=== PATIENT | female | born 1970 | race Hispanic/Latino ===

== ENCOUNTER 2016-09-03 15:05 | Emergency (ER) | payer OTHER ==
[~2016-09-03] VITALS: Ht 154.9 cm; Wt 75.8 kg
[~2016-09-03 15:05] MED LIST: KETOROLAC TROME10 M1 PO; PERCOCET 325 MG1 TA2 PO
[2016-09-03 15:16] VITALS: BP 148/83
[2016-09-03] MEDS ORDERED: VALIUM5 M2 PO (16:49)
[2016-09-03] MEDS ORDERED: PERCOCET 5-3251 EACH PO (16:49)
[2016-09-03] MEDS ORDERED: MEDROL4 M2 PO (16:49)
--- NOTE | 2016-09-03 16:50 | ED NECK/BACK PAIN COMPLAINT ---
History of Present Illness General Chief Complaint: Low Back Pain/Injury Stated Complaint: LOW BACK PAIN Source: patient Exam Limitations: no limitations Vital Signs & Intake/Output Vital Signs & Intake/Output Vital Signs Date Time Temp Pulse Resp B/P Pulse O2 O2 Flow FiO2 Ox Delivery Rate 09/03 1621 Room Air 09/03 1516 97.8 56 16 148/83 99 Room Air Allergies Coded Allergies: NO KNOWN ALLERGIES (06/08/14) Reconcile Medications Diazepam (Valium) 5 MG TABLET 1 TAB PO TID SPASMS Ketorolac Tromethamine 10 MG TABLET 1 TAB PO Q6P PRN PAIN Methylprednisolone. (Medrol) 4 MG TAB.DS.PK 1 DP PO AD SCIATICA 6 on day 1 then reduce by one tablet daily until gone Oxycodone HCl/Acetaminophen (Percocet 5-325 MG Tablet) 5 MG-325 MG TABLET 1-2 TAB PO Q6P PRN PAIN OXYCODONE HCL/ACETAMINOPHEN (Percocet 5-325 MG Tablet) 325 MG/5 MG TAB 1-2 TAB PO Q4-6 PRN PRN PAIN Triage Note: PT STATES SHE HAS A BAD PAIN IN HER LEFT LOWER BACK THAT STARTED SINCE THURSDAY. PT STATES SHE IS HAVING TROUBLE MOVING HER LEFT LEG. Triage Nurses Notes Reviewed? yes Onset: Abrupt Duration: day(s): (3), constant, continues in ED Timing: recent history Quality/Severity: moderate, severe Location: lumbar spine Radiation: upper legs, lower legs, feet Loss of Consciousness: no loss of consciousness HPI: 46-year-old female comes into emergency room with complaints of left lower back pain that radiates down her left leg to her foot. Symptoms have been going on for the past 3 days getting progressively worse. Denies any numbness tingling. Denies any weakness. Denies any other associated symptoms. (WILLIAMS VALDES) Past History Travel History Traveled to [place] past 21 day No Medical History Any Pertinent Medical History? see below for history Endocrine: THYROID NODULE Surgical History Surgical History: non-contributory Psychosocial History What is your primary language Amharic Tobacco Use: Never used ETOH Use: denies use Illicit Drug Use: denies illicit drug use Family History Family History, If Any: MOTHER FH: myocardial infarction Hx Contributory? No (WILLIAMS VALDES) Review of Systems Review of Systems Constitutional: Reports: no symptoms. Eyes: Reports: no symptoms. Ears, Nose, Throat, Mouth: Reports: no symptoms. Respiratory: Reports: no symptoms. Cardiovascular: Reports: no symptoms. Gastrointestinal/Abdominal: Reports: no symptoms. Musculoskeletal: Reports: see HPI. Skin: Reports: no symptoms. Neurological/Psychological: Reports: no symptoms. All Other Systems: Reviewed and Negative (WILLIAMS VALDES) Physical Exam Physical Exam General Appearance: well developed/nourished, mild distress Head: atraumatic Eyes: Bilateral: normal appearance. Ears, Nose, Throat, Mouth: moist mucous membrane Neck: normal inspection Respiratory: no respiratory distress Back: normal inspection, TENDERNESS LEFT LOWER BACK, Extremities: normal range of motion Motor: Deficit L4 Right: No Deficit L4 Left: No Deficit L5 Right: No Deficit L5 Left: No Deficit S1 Right: No Deficit S1 Right: No Neurologic/Psych: awake, alert, oriented x 3, normal mood/affect Skin: intact, normal color, warm/dry (WILLIAMS VALDES) Progress Differential Diagnosis: aortic dissection, cauda equina syn, herniated disc, myofascial strain, pyelo/UTI, sciatica, spinal cord inj, thoracic outlet syn, ureterolithiasis Plan of Care: Orders Procedure Date/time Status Durable Medical Equipment 09/03 1637 Active Departure Departure Disposition: HOME OR SELF CARE Condition: Stable Clinical Impression Primary Impression: Lumbar radiculopathy, acute Referrals: RAFAEL RODARTE (PCP/Family) Additional Instructions: Take Valium Percocet and Medrol Dosepak as prescribed. Follow-up with ear primary care doctor for outpatient MRI. Return if any other concerns worsening symptoms. Please go over all results of today's visit with your primary care doctor. Contact your primary care doctor to let them know you were here in the emergency room. There may be nonspecific findings which may not be related to your visit today here in the emergency room but may require further evaluation and chronic monitoring by your primary care doctor. If you had a laceration today the chance of foreign body always remains. You should follow-up with your primary care doctor for recheck in 3-5 days for a wound check. If you had an x-ray done there is a chance that a fracture could have been missed on initial read and you should follow-up with your primary care doctor for repeat x-rays if symptoms persist. If your blood pressure was elevated here in the emergency room please have rechecked by her primary care doctor within the next 48 hours by your primary care doctor. If you were prescribed a narcotic here in the emergency room or any type of controlled substances you're not allowed to drive while taking this medication or operate any type of heavy machinery. Narcotics can make you feel lightheaded dizziness nausea and can cause constipation. You may need to pickling machine operator a stool softener. Thank you for choosing [facility] emergency room. Please return to the emergency room immediately if you have any other concerns worsening of symptoms. Departure Forms: Customer Survey General Discharge Information Prescriptions: Current Visit Scripts Diazepam (Valium) 1 TAB PO TID #20 TAB Oxycodone HCl/Acetaminophen (Percocet 5-325 MG Tablet) 1-2 TAB PO Q6P PRN PAIN #20 TAB Methylprednisolone. (Medrol) 1 DP PO AD #1 DP 6 on day 1 then reduce by one tablet daily until gone Comments 09/03/2016 5:29:18 PM Patient declined lumbar x-ray here. I feel symptoms are most likely consistent with herniated disc versus sciatica. Patient has no motor deficits. Patient told to follow-up with her primary care doctor for outpatient MRI. Patient just wants some stronger pain medication to go home with. Patient clinically looks well and is in no apparent distress. Nontoxic-appearing. (WILLIAMS VALDES) PA/CASH CLERK Co-Sign Statement Statement: ED Attending supervision documentation- [] I saw and evaluated the patient. I have also reviewed all the pertinent lab results and diagnostic results. I agree with the findings and the plan of care as documented in the PA's/CASH CLERK's documentation. [X] I have reviewed the ED Record and agree with the PA's/CASH CLERK's documentation. [] Additions or exceptions (if any) to the PAs/CASH CLERK's note and plan are summarized below: [] (DG ANTONIO,HALEIGH)
== END 2016-09-03 17:07 ==
LOC: ERH 15:05
DX: M54.16 Radiculopathy, lumbar region (principal)
CPT/HCPCS: 96372